=== PATIENT | male | born 1945 | race Caucasian/White ===

== ENCOUNTER 2025-07-24 14:30 | Inpatient (IN) | payer OTHER ==
[2025-07-24] VITALS (7 sets, daily range): BP systolic 84–96; BP diastolic 47–73
[~2025-07-24] VITALS: Ht 180.3 cm; Wt 141.1 kg
[2025-07-24] MEDS ORDERED: Pantoprazole Sodium 40 MG Injection IV ONE (14:45)
[2025-07-24 14:51] LABS: BASOPHILS ABSOLUTE AUTO 0.03 K/mm3 (0.00-0.23); BASOPHILS PERCENT AUTO 0 % (0-2); EOSINOPHILS ABSOLUTE AUTO 0.00 K/mm3 (0.00-0.68); EOSINOPHILS PERCENT AUTO 0 % (0-6); Hematocrit 36.2 % (37.0-53.0); Hemoglobin 11.6 g/dL (13.5-17.5); IMMATURE GRAN ABSOLUTE AUTO 0.08 K/mm3 (0.00-0.10); IMMATURE GRAN PERCENT AUTO 1 % (0-1); LYMPHOCYTES ABSOLUTE AUTO 1.91 K/mm3 (0.84-5.20); LYMPHOCYTES PERCENT AUTO 14 % (21-46); MONOCYTES ABSOLUTE AUTO 1.01 K/mm3 (0.16-1.47); MONOCYTES PERCENT AUTO 7 % (4-13); Mean Corpuscular HGB Conc 32.0 g/dL (31.5-36.5); Mean Corpuscular Volume 99 fL (80-100); NEUTROPHILS ABSOLUTE AUTO 10.71 K/mm3 (1.96-9.15); NEUTROPHILS PERCENT AUTO 78 % (41-73); NRBC ABSOLUTE 0.00 K/mm3 (0.00-0.02); NRBC Auto 0.0 /100 WBC (0.0-0.2); Platelet Count 206 K/mm3 (150-400); RDW Coefficient Variation 13.6 % (11.7-14.2); RDW Standard Deviation 49.6 fL (35.1-46.3)
[2025-07-24 15:15] LABS: Calcium, Ionized (POC) 1.06 mmol/L (1.10-1.46); Chloride (POC) 99 mmol/L (98-108); Creatinine (POC) 6.6 mg/dL (0.8-1.3); Glucose (ISTAT POC) 101 mg/dL (70-99); Hematocrit (POC) 35.0 % (41.0-53.0); Hemoglobin (POC) 11.9 g/dL (13.5-17.5); Potassium (POC) 5.1 mmol/L (3.5-5.5); Sodium (POC) 137 mmol/L (135-148); Total CO2 (POC) 25 mmol/L (21-32)
[2025-07-24] MEDS ORDERED: ACET500 PO (15:16)
[2025-07-24] MEDS ORDERED: ALUM-MAG HYDROX30 M1 PO (15:17)
[2025-07-24] MEDS ORDERED: AMIODARONE HCL100 M3 PO (15:17)
[2025-07-24 15:18] LABS: Alanine Aminotransfer (ALT/SGP 18.0 U/L (12-78); Albumin, Blood 3.2 g/dL (3.4-5.0); Albumin/Globulin Ratio 1.0 (0.8-1.8); Anion Gap 12.0 mmol/L (3-11); Aspartate Aminotrans (AST/SGOT 6.0 U/L (12-37); Bilirubin, Total 0.6 mg/dL (0.1-1.0); Blood Urea Nitrogen 113.0 mg/dL (8-24); CO2, Blood 26.0 mmol/L (21-32); Calcium, Blood 7.9 mg/dL (8.5-10.1); Chloride, Blood 101.0 mmol/L (98-108); Creatinine, Blood 6.47 mg/dL (0.60-1.20); Globulin, Blood 3.3 g/dL (2.2-4.0); Glucose, Blood 134.0 mg/dL (70-99); Potassium, Blood 5.1 mmol/L (3.5-5.5); Sodium, Blood 134.0 mmol/L (136-145); Total Protein, Blood 6.5 g/dL (6.4-8.2)
[2025-07-24] MEDS ORDERED: ATOR80 PO (15:18)
[2025-07-24] MEDS ORDERED: [UNRECOGNIZED DRUG - OTHER] (15:22)
[2025-07-24] MEDS ORDERED: THERA-D2000 UNIT PO (15:23)
[2025-07-24] MEDS ORDERED: CARV6.25 PO (15:23)
[2025-07-24] MEDS ORDERED: JARDIANCE10 MG PO (15:24)
[2025-07-24] MEDS ORDERED: GABA300 PO (15:24)
[2025-07-24] MEDS ORDERED: FERSU300 PO (15:24)
[2025-07-24] MEDS ORDERED: MELA3 PO (15:25)
[2025-07-24] MEDS ORDERED: METO2.5 PO (15:26)
[2025-07-24] MEDS ORDERED: XARELTO20 M1 PO (15:26)
[2025-07-24] MEDS ORDERED: Ropinirole HCl1 MG PO (15:27)
[2025-07-24] MEDS ORDERED: ENTRESTO 49 MG1 EACH PO (15:27)
[2025-07-24] MEDS ORDERED: SPIR25 PO (15:28)
[2025-07-24] MEDS ORDERED: TORSE20 PO (15:28)
[2025-07-24 16:04] LABS: Prothrombin Time Results 15.1 Sec (9.7-11.5)
[2025-07-24] MEDS ORDERED: Ondansetron HCl 2 MG / ML 2ML Vial IV PRN (19:05)
[2025-07-24] MEDS ORDERED: ONDA4ODT MM ×2 (21:26→21:36)
[2025-07-24] MEDS ORDERED: Lidocaine 2% Jelly Uro-Jet UR ONE (21:35)
[2025-07-24 23:18] LABS: Source, Urine Clean Catch
[2025-07-24 23:25] LABS: Bilirubin, Urine Neg (Neg); Glucose Qualitative, Urine Neg (Neg); Ketones, Urine Neg (Neg); Leukocyte Esterase, Urine Neg (Neg); Protein, Urine 1+ (Neg); Specific Gravity, Urine 1.015 (1.003-1.022); Urobilinogen, Urine NORM (Normal)
[2025-07-24 23:42] LABS: Color, Urine Pale Yellow (P-Yellow)
[2025-07-25] VITALS (27 sets, daily range): BP systolic 84–126; BP diastolic 51–103
[2025-07-25 04:17] LABS: BASOPHILS ABSOLUTE AUTO 0.04 K/mm3 (0.00-0.23); BASOPHILS PERCENT AUTO 0 % (0-2); EOSINOPHILS ABSOLUTE AUTO 0.00 K/mm3 (0.00-0.68); EOSINOPHILS PERCENT AUTO 0 % (0-6); Hematocrit 35.3 % (37.0-53.0); Hemoglobin 11.4 g/dL (13.5-17.5); IMMATURE GRAN ABSOLUTE AUTO 0.07 K/mm3 (0.00-0.10); IMMATURE GRAN PERCENT AUTO 1 % (0-1); LYMPHOCYTES ABSOLUTE AUTO 1.91 K/mm3 (0.84-5.20); LYMPHOCYTES PERCENT AUTO 19 % (21-46); MONOCYTES ABSOLUTE AUTO 1.04 K/mm3 (0.16-1.47); MONOCYTES PERCENT AUTO 10 % (4-13); Mean Corpuscular HGB Conc 32.3 g/dL (31.5-36.5); Mean Corpuscular Volume 101 fL (80-100); NEUTROPHILS ABSOLUTE AUTO 7.16 K/mm3 (1.96-9.15); NEUTROPHILS PERCENT AUTO 70 % (41-73); NRBC ABSOLUTE 0.00 K/mm3 (0.00-0.02); NRBC Auto 0.0 /100 WBC (0.0-0.2); Platelet Count 180 K/mm3 (150-400); RDW Coefficient Variation 13.6 % (11.7-14.2); RDW Standard Deviation 50.7 fL (35.1-46.3)
[2025-07-25 04:55] LABS: Alanine Aminotransfer (ALT/SGP 17.0 U/L (12-78); Albumin, Blood 3.0 g/dL (3.4-5.0); Albumin/Globulin Ratio 0.9 (0.8-1.8); Anion Gap 10.0 mmol/L (3-11); Aspartate Aminotrans (AST/SGOT 15.0 U/L (12-37); Bilirubin, Total 0.4 mg/dL (0.1-1.0); Blood Urea Nitrogen 104.0 mg/dL (8-24); CO2, Blood 26.0 mmol/L (21-32); Calcium, Blood 8.2 mg/dL (8.5-10.1); Chloride, Blood 105.0 mmol/L (98-108); Creatinine, Blood 4.77 mg/dL (0.60-1.20); Globulin, Blood 3.2 g/dL (2.2-4.0); Glucose, Blood 117.0 mg/dL (70-99); Potassium, Blood 4.8 mmol/L (3.5-5.5); Sodium, Blood 136.0 mmol/L (136-145); Thyroid Stimulating Hormone 1.25 uIU/mL (0.360-4.800); Total Protein, Blood 6.2 g/dL (6.4-8.2)
[2025-07-25] MEDS ORDERED: Miconazole Nitrate 2% 85 GM PWD TOP PRN (12:45)
--- NOTE | 2025-07-25 18:04 | NUR ---
SHIFT SUMMARY PT A/OX4 AND COOPERATIVE OF CARE. PT ABLE TO EXPRESS NEEDS AND CALLS APPROPIATE. PT BP'S SOFT THIS MORNING WITH STABLE MAPS BP'S IMPROVED DURIG SHIFT, SEE VITALS. NO REPORT OF CHEST PAIN/PRESSURE THROUGHOUT SHIFT. NO REPORT OF SOB/DYSPNEA THROUGHOUT SHIFT. PT REPORTED DISCOMFORT TO SKIN FOLD OF HIS GROIN, MEDICATED POWDER ORDERED AND APPLIED. PT WORKED WITH THERAPY, SEE THERAPIST NOTES. WONG REMAINED IN PLACE DRAINING TO GRAVITY, YELOOW URINE NOTED.
[2025-07-25] MEDS ORDERED: Miconazole Nitrate 2% 85 GM PWD TOP SCH (21:00)
[2025-07-26 02:25] VITALS: BP 95/64
[2025-07-26 04:00] VITALS: BP 85/54
[2025-07-26 04:26] LABS: Albumin, Blood 3.2 g/dL (3.4-5.0); Anion Gap 7 mmol/L (3-11); Blood Urea Nitrogen 72 mg/dL (8-24); CO2, Blood 30 mmol/L (21-32); Calcium, Blood 9.4 mg/dL (8.5-10.1); Chloride, Blood 108 mmol/L (98-108); Creatinine, Blood 2.94 mg/dL (0.60-1.20); Glucose, Blood 108 mg/dL (70-99); Phosphorus, Blood 3.8 mg/dL (2.5-4.9); Potassium, Blood 4.8 mmol/L (3.5-5.5); Sodium, Blood 140 mmol/L (136-145)
[2025-07-26 05:35] LABS: BASOPHILS ABSOLUTE AUTO 0.04 K/mm3 (0.00-0.23); BASOPHILS PERCENT AUTO 0 % (0-2); EOSINOPHILS ABSOLUTE AUTO 0.01 K/mm3 (0.00-0.68); EOSINOPHILS PERCENT AUTO 0 % (0-6); Hematocrit 38.9 % (37.0-53.0); Hemoglobin 12.5 g/dL (13.5-17.5); IMMATURE GRAN ABSOLUTE AUTO 0.04 K/mm3 (0.00-0.10); IMMATURE GRAN PERCENT AUTO 0 % (0-1); LYMPHOCYTES ABSOLUTE AUTO 1.82 K/mm3 (0.84-5.20); LYMPHOCYTES PERCENT AUTO 16 % (21-46); MONOCYTES ABSOLUTE AUTO 1.08 K/mm3 (0.16-1.47); MONOCYTES PERCENT AUTO 10 % (4-13); Mean Corpuscular HGB Conc 32.1 g/dL (31.5-36.5); Mean Corpuscular Volume 99 fL (80-100); NEUTROPHILS ABSOLUTE AUTO 8.18 K/mm3 (1.96-9.15); NEUTROPHILS PERCENT AUTO 73 % (41-73); NRBC ABSOLUTE 0.00 K/mm3 (0.00-0.02); NRBC Auto 0.0 /100 WBC (0.0-0.2); Platelet Count 181 K/mm3 (150-400); RDW Coefficient Variation 13.4 % (11.7-14.2); RDW Standard Deviation 48.7 fL (35.1-46.3)
[2025-07-26 08:00] VITALS: BP 102/66
--- NOTE | 2025-07-26 09:09 | NUR ---
RECEIVED REPORT FROM NIGHT RN. PT SITTING IN RECLINER, A/O X 4. HE IS ABLE TO MAKE NEEDS KNOWN AND FOLLOWS COMMANDS. PT IN AFIB 70-80s, SBP IS SOFT IN 100s WITH MAP > 65. PATIENT DENIES CHEST PAIN OR PRESSURE. SATS MAINTAINED > 90% ON ROOM AIR, DENIES SOB. WONG CATH PATENT AND DRAINING TO GRAVITY, URINE IS CLEAR AND YELLOW. CALL LIGHT IN REACH.
[2025-07-26 11:43] VITALS: BP 96/74
[2025-07-26 15:52] VITALS: BP 116/84
--- NOTE | 2025-07-26 18:13 | NUR ---
SHIFT SUMMARY PT A/O X 4 AND IS COOPERATIVE WITH CARE. PT IN AFIB 70-90s, HYPOTENSIVE WITH SBP IN 80-100s. DENIES CHEST PAIN/PRESSURE THROUGHOUT SHIFT. SATS MAINTAINED >90 % ON ROOM AIR. PT AMBULATES WITH FWW AND 1 PERSON ASSIST, TOLERATES WELL. WONG CATH PATENT AND DRAINING ANNAMARIA URINE TO GRAVITY. PT CHANGED TO MED STATUS WITHOUT TELE. BED LOCKED IN LOW SETTING, CALL LIGHT IN REACH.
[2025-07-26 20:29] VITALS: BP 126/79
[2025-07-27 04:46] VITALS: BP 117/70
--- NOTE | 2025-07-27 06:15 | NUR ---
SHIFT SUMMARY PATIENT A/OX4. PLEASANT AND COOPERATIVE WITH CARE. WONG CATH IN PLACE DRAINING TO GRAVITY. CATH CARE DONE THIS SHIFT. URINE SLIGHTLY PINK TINGED/ANNAMARIA COLOR. GOOD URINE OUTPUT. SELINA PO INTAKE WELL. NO SOB, CHEST PAIN, N/V. WAS UP TO RR TO HAVE BM X1. PLAN OF CARE ONGOING.
[2025-07-27 08:18] VITALS: BP 127/85
[2025-07-27 08:41] LABS: BASOPHILS ABSOLUTE AUTO 0.04 K/mm3 (0.00-0.23); BASOPHILS PERCENT AUTO 0 % (0-2); EOSINOPHILS ABSOLUTE AUTO 0.00 K/mm3 (0.00-0.68); EOSINOPHILS PERCENT AUTO 0 % (0-6); Hematocrit 41.3 % (37.0-53.0); Hemoglobin 13.3 g/dL (13.5-17.5); IMMATURE GRAN ABSOLUTE AUTO 0.07 K/mm3 (0.00-0.10); IMMATURE GRAN PERCENT AUTO 1 % (0-1); LYMPHOCYTES ABSOLUTE AUTO 1.57 K/mm3 (0.84-5.20); LYMPHOCYTES PERCENT AUTO 15 % (21-46); MONOCYTES ABSOLUTE AUTO 0.52 K/mm3 (0.16-1.47); MONOCYTES PERCENT AUTO 5 % (4-13); Mean Corpuscular HGB Conc 32.2 g/dL (31.5-36.5); Mean Corpuscular Volume 100 fL (80-100); NEUTROPHILS ABSOLUTE AUTO 8.53 K/mm3 (1.96-9.15); NEUTROPHILS PERCENT AUTO 80 % (41-73); NRBC ABSOLUTE 0.00 K/mm3 (0.00-0.02); NRBC Auto 0.0 /100 WBC (0.0-0.2); Platelet Count 201 K/mm3 (150-400); RDW Coefficient Variation 13.3 % (11.7-14.2); RDW Standard Deviation 49.2 fL (35.1-46.3)
[2025-07-27 09:09] LABS: Albumin, Blood 3.6 g/dL (3.4-5.0); Anion Gap 9 mmol/L (3-11); Blood Urea Nitrogen 46 mg/dL (8-24); CO2, Blood 27 mmol/L (21-32); Calcium, Blood 10.1 mg/dL (8.5-10.1); Chloride, Blood 106 mmol/L (98-108); Creatinine, Blood 1.90 mg/dL (0.60-1.20); Glucose, Blood 202 mg/dL (70-99); Phosphorus, Blood 2.7 mg/dL (2.5-4.9); Potassium, Blood 4.5 mmol/L (3.5-5.5); Sodium, Blood 137 mmol/L (136-145)
[2025-07-27 17:06] VITALS: BP 127/77
--- NOTE | 2025-07-27 18:19 | NUR ---
SHIFT SUMMARY PATIENT A/O X 4, FOLLOWS COMMANDS AND MAKES NEEDS KNOWN WITH APPROPRIATE USE OF CALL LIGHT. SBP 90-120s AFTER RESTARTING HEART FAILURE MEDS. DENIES CHEST PAIN, PRESSURE, OR LIGHT HEADEDNESS. SATS > 90% ON ROOM AIR. PATIENT REQUESTS 1-2L NC FOR NIGHT USE. NO O2 USE AT BASELINE AND WILL MAINTAIN O2 SATS AT NIGHT WITHOUT IT. WONG CATH PATENT AND DRAINING ANNAMARIA URINE TO GRAVITY. HE AMBULATED WITH FWW AND 1 PERSON ASSIST TO BATHROOM AND CHAIR FOR BREAKFAST AND LUNCH, TOLERATED WELL. PT REFUSED TRANSFER TO CHAIR FOR DINNER, WILL CONTINUE TO ENCOURAGE ACTIVITY. NO ACUTE CHANGES THIS SHIFT. BED LOCKED IN LOWEST SETTING, CALL LIGHT WITHIN REACH.
[2025-07-28] VITALS (7 sets, daily range): BP systolic 83–120; BP diastolic 57–97
--- NOTE | 2025-07-28 00:39 | NUR ---
TRANSFER NOTE REPORT TO FLORENCE LEWIS ON MEDICAL FLOOR. PATIENT UPDATED ABOUT TRANSFERRING ROOMS. PATIENT AMBULATED WITH WALKER FROM BED TO W/C. PATIENT WAS ON O2 @ 1L/MIN NC WHILE SLEEPING. PATIENT TO MEDICAL FLOOR [facility] ON ROOM AIR.
--- NOTE | 2025-07-28 02:13 | NUR ---
PCU 15 TRANSFER. REPORT TAKEN FROM DIONNA LEWIS. ARRIVED VIA W/C ON 2L O2 NC FOR SLEEP ONLY. PERSONAL BELONGINGS WITH PATIENT. DENIES CHEST PAIN, SOB, AND N/V. WONG PATENT AND DRAINING. PATIENT REPORTS WANTS TO SLEEP AFTER TRANSFER. CALL LIGHT IN REACH. WCTM.
[2025-07-28 05:00] LABS: BASOPHILS ABSOLUTE AUTO 0.05 K/mm3 (0.00-0.23); BASOPHILS PERCENT AUTO 0 % (0-2); EOSINOPHILS ABSOLUTE AUTO 0.00 K/mm3 (0.00-0.68); EOSINOPHILS PERCENT AUTO 0 % (0-6); Hematocrit 39.5 % (37.0-53.0); Hemoglobin 12.7 g/dL (13.5-17.5); IMMATURE GRAN ABSOLUTE AUTO 0.08 K/mm3 (0.00-0.10); IMMATURE GRAN PERCENT AUTO 1 % (0-1); LYMPHOCYTES ABSOLUTE AUTO 2.54 K/mm3 (0.84-5.20); LYMPHOCYTES PERCENT AUTO 19 % (21-46); MONOCYTES ABSOLUTE AUTO 1.03 K/mm3 (0.16-1.47); MONOCYTES PERCENT AUTO 8 % (4-13); Mean Corpuscular HGB Conc 32.2 g/dL (31.5-36.5); Mean Corpuscular Volume 100 fL (80-100); NEUTROPHILS ABSOLUTE AUTO 9.62 K/mm3 (1.96-9.15); NEUTROPHILS PERCENT AUTO 72 % (41-73); NRBC ABSOLUTE 0.00 K/mm3 (0.00-0.02); NRBC Auto 0.0 /100 WBC (0.0-0.2); Platelet Count 193 K/mm3 (150-400); RDW Coefficient Variation 13.2 % (11.7-14.2); RDW Standard Deviation 48.2 fL (35.1-46.3)
[2025-07-28 05:24] LABS: Albumin, Blood 3.4 g/dL (3.4-5.0); Anion Gap 9 mmol/L (3-11); Blood Urea Nitrogen 42 mg/dL (8-24); CO2, Blood 27 mmol/L (21-32); Calcium, Blood 9.7 mg/dL (8.5-10.1); Chloride, Blood 105 mmol/L (98-108); Creatinine, Blood 1.82 mg/dL (0.60-1.20); Glucose, Blood 106 mg/dL (70-99); Phosphorus, Blood 3.4 mg/dL (2.5-4.9); Potassium, Blood 4.3 mmol/L (3.5-5.5); Sodium, Blood 137 mmol/L (136-145)
[2025-07-28] MEDS ORDERED: Torsemide 20 MG TAB PO SCH (09:00)
--- NOTE | 2025-07-28 14:48 | NUR ---
AT APPROX 0730 THIS MORNING, PT'S BLOOD PRESSURE READINGS WERE HYPOTENSIVE. SEE VITALS IN EMAR. CALL PLACED TO DR. CARDOSO TO NOTIFY. NEW ORDERS ENTERED FOR MEDICATION ADJUSTMENTS.
--- NOTE | 2025-07-28 17:46 | NUR ---
SHIFT SUMMARY; PT A/OX4, PLEASANT, AND 1 PERSON ASSIST TO BATHROOM. PT'S BP READINGS WERE LOW THIS MORNING. DR. CARDOSO NOTIFIED VIA PHONE AND MEDS WERE ADJUSTED. BP THIS AFTERNOON RAISED FROM THIS MORNING, SEE VITALS. ECHO BEEN ORDERED PENDING PRODCEDURE. THIS AFTERNOON PT HAS S/SXS OF L FOOT PAIN LOCATED ON THE DORSAL ASPECT, DESCRIBED A SHARP PAIN. PT MEDICATED FOR PAIN PER EMAR. VSS AT THIS TIME. BED IN LOW POSITION AND CALL LIGHT WITHIN REACH.
--- NOTE | 2025-07-28 18:09 | NUR ---
THIS BUNDLE CUTTER HAS REVIEWED AND AGREES WITH ALL NOTES AND ASSESSMENTS.
[2025-07-29 02:46] VITALS: BP 97/69
--- NOTE | 2025-07-29 04:19 | NUR ---
SHIFT SUMMARY PATIENT HAD NO ACUTE CHANGES. ALERT ORIENTED AND ONE ASSIST FWW TO BSC. DENIES CHEST PAIN, SOB, AND N/V. VSS/AFEBRILE. REPORTED LEFT FOOT PAIN AND OXYCODONE 5 MG GIVEN PER EMAR. ON 2L O2 NC. WONG PATENT AND DRAINING TO GRAVITY. CALL LIGHT IN REACH. BED IN LOWEST POSITION. WILL CONTINUE TO MONITOR UNTIL DAY SHIFT NURSE ASSUMES CARE.
[2025-07-29 05:41] LABS: BASOPHILS ABSOLUTE AUTO 0.05 K/mm3 (0.00-0.23); BASOPHILS PERCENT AUTO 0 % (0-2); EOSINOPHILS ABSOLUTE AUTO 0.00 K/mm3 (0.00-0.68); EOSINOPHILS PERCENT AUTO 0 % (0-6); Hematocrit 39.7 % (37.0-53.0); Hemoglobin 12.8 g/dL (13.5-17.5); IMMATURE GRAN ABSOLUTE AUTO 0.10 K/mm3 (0.00-0.10); IMMATURE GRAN PERCENT AUTO 1 % (0-1); LYMPHOCYTES ABSOLUTE AUTO 1.95 K/mm3 (0.84-5.20); LYMPHOCYTES PERCENT AUTO 13 % (21-46); MONOCYTES ABSOLUTE AUTO 1.42 K/mm3 (0.16-1.47); MONOCYTES PERCENT AUTO 10 % (4-13); Mean Corpuscular HGB Conc 32.2 g/dL (31.5-36.5); Mean Corpuscular Volume 99 fL (80-100); NEUTROPHILS ABSOLUTE AUTO 11.10 K/mm3 (1.96-9.15); NEUTROPHILS PERCENT AUTO 76 % (41-73); NRBC ABSOLUTE 0.00 K/mm3 (0.00-0.02); NRBC Auto 0.0 /100 WBC (0.0-0.2); Platelet Count 196 K/mm3 (150-400); RDW Coefficient Variation 13.3 % (11.7-14.2); RDW Standard Deviation 48.5 fL (35.1-46.3)
[2025-07-29 05:56] LABS: Anion Gap 9.0 mmol/L (3-11); Blood Urea Nitrogen 41.0 mg/dL (8-24); CO2, Blood 28.0 mmol/L (21-32); Calcium, Blood 9.2 mg/dL (8.5-10.1); Chloride, Blood 104.0 mmol/L (98-108); Creatinine, Blood 1.68 mg/dL (0.60-1.20); Glucose, Blood 106.0 mg/dL (70-99); Potassium, Blood 4.1 mmol/L (3.5-5.5); Sodium, Blood 137.0 mmol/L (136-145)
[2025-07-29 07:14] VITALS: BP 97/63
[2025-07-29] MEDS ORDERED: Torsemide 20 MG TAB PO SCH (09:00)
[2025-07-29 11:07] VITALS: BP 111/65
[2025-07-29 17:00] VITALS: BP 104/47
--- NOTE | 2025-07-29 17:59 | NUR ---
THIS CLAY [employer]OP SUPERVISOR HAS REVIEWED ALL NOTES AND ASSESSMENTS BY DEBBIE BOYER.
--- NOTE | 2025-07-29 18:03 | NUR ---
SHIFT SUMMARY; PT A/OX4, PLEASANT, AND COORPERATIVE [facility] C[facility]. PT'S BLOOD PRESSURE REMAINED LOWER THIS MORNING. CALL PLACED TO DR. PAGAN AND DECISION WAS MADE TO HOLD BP MEDICATIONS THIS AM. NEW ORDERS FOR BP MEDICATION HAVE BEEN ADDED. SEE EMAR. ECHO PERFORMED AT BEDSIDE AND RT ALSO AT BEDSIDE THIS AFTERNOON. DR. VALENCIA AT BEDSIDE THIS AFTERNOON. ADVISED PT MAY HAVE GOUT IN HIS FEET, CAUSING HIS LAUREN FEET PAIN. NEW MEDICATIONS ORDERED. SEE EMAR. CALL LIGHT WITHIN REACH AND BED IN LOW POSITION.
[2025-07-29 19:28] VITALS: BP 101/62
[2025-07-29 19:36] VITALS: BP 101/62
[2025-07-29] MEDS ORDERED: Colchicine 0.6 MG TAB PO SCH (21:00)
[2025-07-30 04:58] LABS: BASOPHILS ABSOLUTE AUTO 0.05 K/mm3 (0.00-0.23); BASOPHILS PERCENT AUTO 0 % (0-2); EOSINOPHILS ABSOLUTE AUTO 0.00 K/mm3 (0.00-0.68); EOSINOPHILS PERCENT AUTO 0 % (0-6); Hematocrit 37.8 % (37.0-53.0); Hemoglobin 12.2 g/dL (13.5-17.5); IMMATURE GRAN ABSOLUTE AUTO 0.15 K/mm3 (0.00-0.10); IMMATURE GRAN PERCENT AUTO 1 % (0-1); LYMPHOCYTES ABSOLUTE AUTO 1.88 K/mm3 (0.84-5.20); LYMPHOCYTES PERCENT AUTO 12 % (21-46); MONOCYTES ABSOLUTE AUTO 1.44 K/mm3 (0.16-1.47); MONOCYTES PERCENT AUTO 9 % (4-13); Mean Corpuscular HGB Conc 32.3 g/dL (31.5-36.5); Mean Corpuscular Volume 99 fL (80-100); NEUTROPHILS ABSOLUTE AUTO 12.11 K/mm3 (1.96-9.15); NEUTROPHILS PERCENT AUTO 78 % (41-73); NRBC ABSOLUTE 0.00 K/mm3 (0.00-0.02); NRBC Auto 0.0 /100 WBC (0.0-0.2); Platelet Count 206 K/mm3 (150-400); RDW Coefficient Variation 13.2 % (11.7-14.2); RDW Standard Deviation 48.0 fL (35.1-46.3)
[2025-07-30 05:22] LABS: Anion Gap 9.0 mmol/L (3-11); Blood Urea Nitrogen 36.0 mg/dL (8-24); CO2, Blood 26.0 mmol/L (21-32); Calcium, Blood 9.0 mg/dL (8.5-10.1); Chloride, Blood 102.0 mmol/L (98-108); Creatinine, Blood 1.55 mg/dL (0.60-1.20); Glucose, Blood 137.0 mg/dL (70-99); Potassium, Blood 3.9 mmol/L (3.5-5.5); Sodium, Blood 133.0 mmol/L (136-145); Uric Acid, Blood 7.3 mg/dL (3.5-7.2)
--- NOTE | 2025-07-30 06:24 | NUR ---
SUMMARY: PT A/OX4, CALLS APPROPRIATELY TO SPECIFY NEEDS AND IS COOPERATIVE W/CARE. PT WAS ASSISTED W/REPOSITIONING T/O NOCTE PER REQUEST AND WASN'T ABLE TO BEAR WEIGHT THIS SHIFT R/T L.FOOT PAIN. REQUIP AND TYLENOL RECEIVED PRN PER EMAR. L.GREAT TOE APPEARS RED AND HOT AND IS TENDER TO THE TOUCH. WONG IS PATENT AND DRAINING FOR RETENTION AND ATTENDS CHANGED PRN FOR OCC.LEAKING. HE REMAINS ON 1-2L O2 VIA NC WHILE ASLEEP AND REFUSED OVERNIGHT SLEEP OXIMETRY STUDY. RT ATTEMPTED TO PERFORM IT BUT PT BECAME ANXIOUS WITHIN 30 MINS OF BEING PLACED ON RA, WILL ENSURE DAY RN IS AWARE. ENTRESTO HELD AT HS FOR SBP 101 BUT IT'S IMPROVED TO 115 THIS AM. ALL OTHER VSS/AFEBRILE. NO ACUTE CHANGES. WILL REPORT TO DAY RN.
[2025-07-30 06:25] VITALS: BP 115/75
[2025-07-30 07:22] VITALS: BP 97/60
--- NOTE | 2025-07-30 08:56 | NUR ---
THIS RN NOTIFIED OF PT'S LOW BP DURING AM ROUND. PT ASYMPTOMATIC, MED PARAMETERS ALREADY IN PLACE.
[2025-07-30] MEDS ORDERED: Torsemide 20 MG TAB PO SCH (09:00)
[2025-07-30] MEDS ORDERED: Lopressor 25 mg25 MG PO (11:18)
[2025-07-30] MEDS ORDERED: COLCHICINE0.6 MG PO (11:18)
[2025-07-30] MEDS ORDERED: ELIQUIS5 M2 PO (11:19)
--- NOTE | 2025-07-30 15:02 | NUR ---
DISCHARGE NOTE PATIENT DISCHARGE TO HOME VIA. PRINTED AND REVIEWED DISCHARGE INSTRUCTIONS WITH PATIENT AND PATIENT'S FRIEND. PATIENT DISCHARGE WITH WONG IN PLACE PER AIRPLANE FLIGHT ATTENDANT SUPERVISOR AND DR. PAGAN. BELONGINGS RETURNED TO PATIENT. PATIENT WAS ESCORTED OUT VIA WHEELCHAIR BY THIS RN AND PATIENT'S FRIEND.
== END 2025-07-30 15:08 | disposition home health service (06) | DRG 683 ==
LOC: ER 14:30 → PCU 17:30 → ERHOLD 17:30 → PCU 21:04 → MEDS 07-28 00:15
PROVIDERS: Emergency Medicine; Student in an Organized Health Care Education/Training Program; ADMIT Internal Medicine
PROC: 0T9B70Z Drainage of Bladder with Drainage Device, Via Natural or Artificial Opening (ICD-10-PCS; principal; 2025-07-25)
DX: N17.9 Acute kidney failure, unspecified (principal); I42.9 Cardiomyopathy, unspecified; I48.20 Chronic atrial fibrillation, unspecified; I50.22 Chronic systolic (congestive) heart failure; I25.10 Atherosclerotic heart disease of native coronary artery without angina pectoris; I11.0 Hypertensive heart disease with heart failure; M54.9 Dorsalgia, unspecified; G89.29 Other chronic pain; E78.5 Hyperlipidemia, unspecified; F43.10 Post-traumatic stress disorder, unspecified; F42.9 Obsessive-compulsive disorder, unspecified; E66.01 Morbid (severe) obesity due to excess calories; G25.81 Restless legs syndrome; G47.33 Obstructive sleep apnea (adult) (pediatric); I95.9 Hypotension, unspecified; R33.8 Other retention of urine; C61 Malignant neoplasm of prostate; M10.9 Gout, unspecified; N32.0 Bladder-neck obstruction; K22.70 Barrett's esophagus without dysplasia; Z68.38 Body mass index [BMI] 38.0-38.9, adult; Z79.899 Other long term (current) drug therapy; Z79.01 Long term (current) use of anticoagulants; Z87.442 Personal history of urinary calculi; Z99.89 Dependence on other enabling machines and devices; Z91.041 Radiographic dye allergy status; Z87.19 Personal history of other diseases of the digestive system; Z85.828 Personal history of other malignant neoplasm of skin
CPT/HCPCS: 36415; 51702; 71045; 76770; 80047; 80048; 80053; 80069; 82550; 83605; 84443; 84484; 84550; 85014; 85025; 85610; 85730; 86850; 86900; 86901; 87040; 93005; 93010; 94761; 94762; 96361; 96374; 97110; 97116; 97161; 97530; 99285-25; A9270; C8929; J2470; J7120; Q9957